=== PATIENT | female | born 1950 | race Caucasian/White ===

== ENCOUNTER 2018-01-11 16:18 | Inpatient (IN) | payer OTHER ==
[2018-01-11] MEDS ORDERED: HYDROmorphONE/DILAUDID 2 MG/ML INJ IVP PRN (16:37)
[2018-01-11] MEDS ORDERED: ONDANSETRON 4 MG/2 ML VIAL IVP PRN (16:37)
[2018-01-11] MEDS ORDERED: ONDANSETRON DISINTEGRATING 4 MG TAB PO PRN (16:37)
[2018-01-11] MEDS ORDERED: ACETAMINOPHEN 325 MG TAB PO PRN (16:37)
[2018-01-11] MEDS ORDERED: NS 1,000 ML IV SCH (16:45)
[2018-01-11] MEDS ORDERED: NALOXONE HCL 0.4 MG/ML INJ IVP PRN (17:23)
--- NOTE | 2018-01-11 17:31 | SOAPPROG ---
SOAP Progress Note Assessment/Plan: Assessment: 67-YEAR-OLD FEMALE WHO IS BEING ADMITTED AT THIS TIME FOR PAIN CONTROL AFTER A VENTRAL HERNIA REPAIRED OUTPATIENT CENTER WHICH TURNED OUT TO BE MUCH BIGGER THAN PLANNED AND SHE IS HAVING CONSIDERABLE PAIN REQUIRING IV NARCOTICS. RISKS AND OPTIONS BEEN FULLY DISCUSSED. SHE ALSO HAS A SUBCUTANEOUS DRAIN IN PLACE PAST TISSUES UNCHANGED FROM HER PREVIOUS PAST HISTORY HAVING HAD A VISCERAL ANEURYSM REPAIRED IN THE PAST HEANAYELI ONEAL, NONICTERIC WITH NO ADENOPATHY CHEST CLEAR COR REGULAR RHYTHM ABDOMEN FRESH UPPER ABDOMINAL INCISION WITH A RACHNA DRAIN/OTHERWISE SOFT WITH POSITIVE BOWEL SOUNDS EXTREMITIES FULL RANGE OF MOTION FULL PULSES NO KNOWN ALLERGIES MEDICATIONS SEE LIST Plan: ADMIT FOR PAIN CONTROL AND OBSERVATION 01/11/18 17:27 Objective: Vital Signs Temp Pulse Resp BP Pulse Ox 36.5 C 92 18 164/81 H 91 L 01/11/18 17:09 01/11/18 17:09 01/11/18 17:09 01/11/18 17:09 01/11/18 17:09 ICD10 Worksheet Patient Problems: Problems Problem Status Onset Ventral hernia Acute - ICD10 Problem Qualifiers (1) Ventral hernia
[2018-01-11] MEDS: D5W 1/2 NS W/ 20 KCl/L 1,000 ML IV SCH (17:57)
[2018-01-11] MEDS: KETOROLAC 15 MG/1 ML SDV IVP SCH (17:59)
--- NOTE | 2018-01-11 18:14 | GHP ---
[f rep st] HISTORY AND PHYSICAL DATE OF ADMISSION: 01/11/2018 HISTORY OF PRESENT ILLNESS: Britt is a 67-year-old female who underwent ventral hernia repair surgery today at [facility]. She has a history of a thoracoabdominal aneurysm that was debranched and then subsequently repaired in 2017 with an open abdominal incision, eventually leading to a ventral hernia. During the surgery today, she was found to have a larger hernia than originally thought, which thus warranted a larger incision. Due to the patient's amount of postoperative pain, she was unable to be discharged today. She is being admitted for postoperative pain control. PAST MEDICAL HISTORY: Includes thoracoabdominal aneurysm, hypertension, hypothyroid, and gout. PAST SURGICAL HISTORY: Includes 3 surgeries in 2017 for her thoracoabdominal aneurysm. Tubal ligation in 1979. CURRENT MEDICATIONS: Allopurinol 300 mg, calcium polycarbophil 500 mg, CO-Q 10 , fish oil, folic acid, hydrochlorothiazide 25 mg, levothyroxine 25 mcg, Lysine 500 mg, magnesium as needed, metoprolol tartrate 25 mg half tab per day, thyroid 60 mg per day. REVIEW OF SYSTEMS: A 10-point review of systems is performed and is normal except for the History of Present Illness. PHYSICAL EXAMINATION: GENERAL: Patient in pain. PSYCHIATRIC: Alert. HEART: RRR. LUNGS: Clear to auscultation bilaterally. ABDOMEN: Soft, tender to palpation, dressing clean, dry, intact. RACHNA drain. MUSCULOSKELETAL: Moves all extremities equally. SKIN: Warm and dry. NEURO: Cranial nerves 2-12 are grossly intact. PLAN: Hospital admission for postoperative pain control. /[id number]/MODL MTDD
[2018-01-11] MEDS: HYDROmorphONE/DILAUDID 2 MG/ML INJ IVP PRN ×2 (18:45→21:16)
--- NOTE | 2018-01-11 19:34 | PDMN ---
Medical Necessity Medical necessity: C/M review: Patient meets INPT criteria under [facility] S-1305 Hernia repair (non-hiatal), Pain management GRG: S/P 01/11/2018 ventral hernia repair with mesh and a drain placed in subcutaneous tissue, done in outpt. surgery center, larger incision done than was originally planned - almost as large as patient's previous incision, acute and persistent severe postop pain requiring ongoing IV D51/2NS with 20 meq KCL 100 ml/hr. infusion, IV Ketrolac Q 6 hrs scheduled, frequent doses IV Dilaudid, comorbid history of three surgeries in 2017 for thoroacoabdominal aneurysm with previous vertical incision 6 inches long from those surgeries - ventral hernia was just left of this prior incision, hypertension, hypothyroidism, gout RECONCILIATION SPECIALIST expects > 2 MN LOS for ongoing med nec for eval and TX of above.
[2018-01-12] MEDS: KETOROLAC 15 MG/1 ML SDV IVP SCH ×5 (00:25→23:58)
[2018-01-12] MEDS: HYDROmorphONE/DILAUDID 2 MG/ML INJ IVP PRN ×4 (01:57→13:32)
[2018-01-12] MEDS: D5W 1/2 NS W/ 20 KCl/L 1,000 ML IV SCH ×2 (05:09→22:54)
--- NOTE | 2018-01-12 08:52 | SOAPPROG ---
SOAP Progress Note Assessment/Plan: Assessment/Plan: 67yo F POD#1 s/p ventral hernia repair with mesh - VSS, HDS - pain controlled, hasnt used any oral narcotics yet. Encouraged her to switch to PO - abdomen soft and aTTP, RACHNA serosang. - Reg diet - decrease MIVF to 50 - encourage ambulation - home this PM versus more likely tomorrow. All home meds restarted 01/12/18 08:50 Subjective: feels ok, had a lot of questions about her surgery Objective: Vital Signs Temp Pulse Resp BP Pulse Ox 36.7 C 77 16 130/72 H 95 01/12/18 07:50 01/12/18 07:50 01/12/18 07:50 01/12/18 07:50 01/12/18 07:50 01/11/18 01/12/18 01/13/18 05:59 05:59 05:59 Intake Total 1250 Output Total 260 Balance 990 ICD10 Worksheet Patient Problems: Problems Problem Status Onset Ventral hernia Acute
[2018-01-12] MEDS ORDERED: THYROID 60 MG TAB PO SCH (09:00)
[2018-01-12] MEDS: HYDROCHLOROTHIAZIDE 25 MG TAB PO SCH (09:18)
[2018-01-12] MEDS: ALLOPURINOL 300 MG TAB PO SCH (09:18)
[2018-01-12] MEDS: FOLIC ACID 1 MG TAB PO SCH (09:18)
[2018-01-12] MEDS: METOPROLOL TARTRATE 25 MG TAB PO SCH ×2 (09:19→21:22)
[2018-01-12] MEDS: ENOXAPARIN 40 MG/0.4 ML SYR SC SCH (09:20)
[2018-01-12] MEDS: OXYCODONE/APAP 5/325 TAB PO PRN ×2 (16:18→21:24)
--- NOTE | 2018-01-12 17:36 | ASMTCMCOM ---
CM Note CM Note Notes: Spoke w/RN, anticipate pt will dc home w/ support of when medically stable. CM available for any changes. DC Plan: Independent Date Signed: 01/12/2018 05:36 PM Electronically Signed By:Griselda Ellis RN
[2018-01-13] MEDS: THYROID 60 MG TAB PO SCH (05:10)
[2018-01-13] MEDS: KETOROLAC 15 MG/1 ML SDV IVP SCH ×3 (05:11→18:32)
[2018-01-13] MEDS: LEVOTHYROXINE 25 MCG TAB PO SCH (05:11)
[2018-01-13] MEDS: HYDROCHLOROTHIAZIDE 25 MG TAB PO SCH (09:02)
[2018-01-13] MEDS: METOPROLOL TARTRATE 25 MG TAB PO SCH ×2 (09:02→20:36)
[2018-01-13] MEDS: FOLIC ACID 1 MG TAB PO SCH (09:02)
[2018-01-13] MEDS: ALLOPURINOL 300 MG TAB PO SCH (09:02)
[2018-01-13] MEDS: ENOXAPARIN 40 MG/0.4 ML SYR SC SCH (09:03)
[2018-01-13] MEDS ORDERED: POLYETHYLENE GLYCOL 3350 17 GM PKT PO PRN (10:32)
[2018-01-13] MEDS ORDERED: BISACODYL 10 MG SUPP PR PRN (10:32)
[2018-01-13] MEDS ORDERED: MAGNESIUM HYDROXIDE 30 ML UDCUP PO PRN (10:32)
[2018-01-13] MEDS ORDERED: LACTULOSE 20 GM/30 ML UDCUP PO PRN (10:32)
[2018-01-13] MEDS: SENNOSIDES/DOCUSATE SODIUM TAB PO SCH ×2 (10:46→20:37)
[2018-01-13] MEDS: OXYCODONE/APAP 5/325 TAB PO PRN ×3 (10:50→20:40)
--- NOTE | 2018-01-13 11:09 | SOAPPROG ---
JESSIE Progress Note Assessment/Plan: Assessment/Plan: 67yo F POD#2 s/p ventral hernia repair with mesh - VSS, HDS - Pain appears controlled, now on PO percocet - has been ambulating, tolerating diet and passing flatus - took down dressing today, incision is c/d/i, RACHNA serosang and minimal output - has some swelling in LUE? had no IV or other intervention here. Will monitor, if persists will US - ambulate, eat. Poss home later today if she feels up to it 01/12/18 08:50 01/13/18 11:08 Subjective: " I still dont feel great" Objective: Vital Signs Temp Pulse Resp BP Pulse Ox 36.8 C 78 14 152/85 H 94 01/13/18 11:05 01/13/18 11:05 01/13/18 11:05 01/13/18 11:05 01/13/18 11:05 01/12/18 01/13/18 01/14/18 05:59 05:59 05:59 Intake Total 1250 1373 Output Total 260 1115 565 Balance 990 258 -565 ICD10 Worksheet Patient Problems: Problems Problem Status Onset Ventral hernia Acute
[2018-01-14] MEDS: KETOROLAC 15 MG/1 ML SDV IVP SCH ×3 (00:15→16:36)
[2018-01-14] MEDS: OXYCODONE/APAP 5/325 TAB PO PRN ×4 (00:48→12:43)
[2018-01-14] MEDS: THYROID 60 MG TAB PO SCH (04:49)
[2018-01-14] MEDS: LEVOTHYROXINE 25 MCG TAB PO SCH (04:50)
[2018-01-14] MEDS: HYDROCHLOROTHIAZIDE 25 MG TAB PO SCH (07:55)
[2018-01-14] MEDS: ALLOPURINOL 300 MG TAB PO SCH (07:55)
[2018-01-14] MEDS: METOPROLOL TARTRATE 25 MG TAB PO SCH (07:55)
[2018-01-14] MEDS: FOLIC ACID 1 MG TAB PO SCH (07:55)
[2018-01-14] MEDS: SENNOSIDES/DOCUSATE SODIUM TAB PO SCH (07:55)
[2018-01-14] MEDS: ENOXAPARIN 40 MG/0.4 ML SYR SC SCH (07:56)
[2018-01-14] MEDS ORDERED: METOPROLOL TARTRATE 25 MG TAB PO ONE (08:30)
--- NOTE | 2018-01-14 08:44 | SOAPPROG ---
SOAP Progress Note Assessment/Plan: Assessment: 67 y/o female s/p ventral hernia repair with mess / S: Doing well today. Concerned about her elevation in BP. It was 190/106 yesterday and is 156/90 today. Also concerned about the edema in her left arm. Still on 1L O2. Passing flatus, no BM yet. Exclusively on PO pain meds. O: Alert Afebrile No WOB RRR Abdomen: soft, tender to palpation, normoactive BS, incision is cdi. RACHNA drain with serosanuinous output approximately 45ml/day Left arm: significantly larger than right, nontender. US yesterday was negative for DVT. Plan: Possibly home today. will be home to assist her. Continue to get out of bed and use IS regularly. Bowel protocol. Increase metropolol from 12.5mg BID to 25mg BID. 01/14/18 08:37 Objective: Vital Signs Temp Pulse Resp BP Pulse Ox 36.8 C 74 14 153/99 H 91 L 01/14/18 07:42 01/14/18 07:42 01/14/18 07:42 01/14/18 07:42 01/14/18 07:42 01/13/18 01/14/18 01/15/18 05:59 05:59 05:59 Intake Total 1373 550 Output Total 1115 7255 410 Balance 258 -1695 -410 ICD10 Worksheet Patient Problems: Problems Problem Status Onset Ventral hernia Acute
[2018-01-14 15:31] VITALS: BP 167/101; PULSE 76; RESP 12; TEMP 97.7; O2SAT 92
[2018-01-14] MEDS ORDERED: METOPROLOL TARTRATE 25 MG TAB PO SCH (21:00)
== END 2018-01-14 18:09 | disposition home or self-care (01) | DRG 948 ==
LOC: F3E 17:06 → OBSVTOIN 19:14
PROVIDERS: ADMIT Surgery; ATTEND Surgery
DX: G89.18 Other acute postprocedural pain (principal); I10 Essential (primary) hypertension; E03.9 Hypothyroidism, unspecified; M10.9 Gout, unspecified; I71.4 Abdominal aortic aneurysm, without rupture
CPT/HCPCS: J1170; J1650; J1885